=== PATIENT | female | born 1955 | race Caucasian/White ===

== ENCOUNTER 2021-03-15 07:05 | Day surgery (SDC) | payer MEDICARE, MEDICAID ==
[2021-03-11 13:35] LABS: COVID AG,FIA SOURCE NASOPHARYNGEAL
[2021-03-11 13:37] LABS: BASOPHILS % (AUTO) 0.8 % (0.0-2.0); EOSINOPHILS % (AUTO) 1.8 % (1.0-6.0); HEMATOCRIT 43.8 % (36-46); HEMOGLOBIN 14.2 g/dL (12.0-16.0); LYMPHOCYTES # (AUTO) 2.3 K/uL (1.0-4.8); LYMPHOCYTES % (AUTO) 36.4 % (22.0-44.0); MEAN CORPUSCULAR HEMOGLOBIN 27.8 pg (26.0-34.0); MEAN CORPUSCULAR HGB CONC 32.3 G/dL (31.0-37.0); MEAN CORPUSCULAR VOLUME 86 fL (80-100); MONOCYTES # (AUTO) 0.6 K/uL (0.1-1.0); MONOCYTES % (AUTO) 10.2 % (2.0-9.0); NEUTROPHILS # (AUTO) 3.2 K/uL (1.8-7.7); NEUTROPHILS % (AUTO) 50.8 % (40.0-70.0); PLATELET COUNT (AUTO) 199 K/uL (150-450); RED BLOOD CELL COUNT(AUTO) 5.09 MIL/uL (4.00-5.20); RED CELL DISTRIBUTION WIDTH 14.8 % (11.5-14.5)
[2021-03-11 13:48] LABS: ANION GAP 5 mmol/L (8-16); CALCIUM, TOTAL 9.1 mg/dL (8.8-10.5); CARBON DIOXIDE 29 mmol/L (22-29); CHLORIDE 108 mmol/L (98-107); CREATININE 0.71 mg/dL (0.60-1.30); GLOMERULAR FILTR. RATE CALC > 60 mL/min (>60); GLUCOSE,RANDOM 90 mg/dL (70-110); POTASSIUM 4.2 mmol/L (3.5-5.1); SODIUM SERUM 142 mmol/L (136-145); UREA NITROGEN, BLOOD 18 mg/dL (7-18)
[2021-03-11 13:52] LABS: PROTHROMBIN TIME 10.6 SEC (9.4-11.6)
[~2021-03-15] VITALS: Ht 167.6 cm; Wt 94.5 kg
[~2021-03-15 07:05] MED LIST: ASPIRIN 81 MG CHEWABLE TABLET PO ONE; CARV6 PO; DIAZEPAM 5 MG TABLET PO ONE; DiphenhydrAMINE HCL 50 MG CAPSULE PO ONE; PITA4TAB2 PO; SODIUM CHLORIDE 0.9% 1,000 ML IV SCH
[2021-03-15] MEDS ORDERED: SODIUM CHLORIDE 0.9% 1,000 ML ONE (07:25)
[2021-03-15] MEDS ORDERED: DIAZEPAM 5 MG TABLET ONE (07:50)
[2021-03-15] MEDS ORDERED: DiphenhydrAMINE HCL 50 MG CAPSULE ONE (07:50)
[2021-03-15] MEDS ORDERED: ASPIRIN 81 MG CHEWABLE TABLET ONE (07:50)
[2021-03-15] MEDS ORDERED: IOHEXOL 300 MG/ML 50 ML VIAL ONE (08:55)
[2021-03-15] MEDS ORDERED: LIDOCAINE/PF 1% 30 ML VIAL ONE (08:55)
[2021-03-15] MEDS ORDERED: HEPARIN SODIUM 1000 UNITS/NS 1,000 ML ONE (08:56)
[2021-03-15] MEDS ORDERED: SODIUM BICARBONATE 50 MEQ/50 ML VIAL ONE (08:56)
[2021-03-15] MEDS ORDERED: IOHEXOL 300 MG/ML 100 ML VIAL ONE (08:56)
[2021-03-15] MEDS ORDERED: IOHEXOL 300 MG/ML 150 ML VIAL ONE (08:56)
[2021-03-15] MEDS ORDERED: FentaNYL CITRATE PF 100 MCG/2 ML VIAL ONE (09:34)
[2021-03-15] MEDS ORDERED: MIDAZOLAM HCL 2 MG/2 ML VIAL ONE (09:34)
[2021-03-15 09:37] VITALS: BP 171/99
[2021-03-15] MEDS ORDERED: LIDOCAINE 1% 30 ML/SOD BICARB 8.4% 4 ML SQ ONE (10:00)
[2021-03-15] MEDS ORDERED: MIDAZOLAM HCL 2 MG/2 ML VIAL IVP ONE ×2 (10:00)
[2021-03-15] MEDS ORDERED: HEPARIN SODIUM 1000 UNITS/NS 1,000 ML IARTER ONE (10:00)
[2021-03-15] MEDS ORDERED: FentaNYL CITRATE PF 100 MCG/2 ML VIAL IVP ONE ×2 (10:00)
[2021-03-15] MEDS ORDERED: IOHEXOL 300 MG/ML 150 ML VIAL IARTER ONE (10:00)
[2021-03-15 10:25] VITALS: BP 141/84
== END 2021-03-15 14:20 | disposition home or self-care (01) ==
LOC: CATHLAB 07:05
PROVIDERS: ATTEND Internal Medicine Interventional Cardiology
DX: R94.39 Abnormal result of other cardiovascular function study (principal); R07.9 Chest pain, unspecified; I10 Essential (primary) hypertension; E66.9 Obesity, unspecified; Z82.49 Family history of ischemic heart disease and other diseases of the circulatory system; E78.5 Hyperlipidemia, unspecified; Z79.01 Long term (current) use of anticoagulants; Z79.899 Other long term (current) drug therapy; Z98.890 Other specified postprocedural states; M19.90 Unspecified osteoarthritis, unspecified site; Z90.710 Acquired absence of both cervix and uterus
CPT/HCPCS: 36415; 80048; 85025; 85610; 85730; 87426; 93005; 93458; 99152; C1760; C9803; J1644; J2250; J3010; J3490 ×2; J7030; Q9967